=== PATIENT | male | born 1935 | race Caucasian/White ===

== ENCOUNTER → 2016-11-19 | Outpatient (CLI) | payer MEDICARE, BC ==
[~2016-11-19] MED LIST: NORCO 325 MG-51 TAB PO
== END ==
LOC: COL.LAB 12:25
DX: Z12.11 Encounter for screening for malignant neoplasm of colon (principal)

== ENCOUNTER 2023-09-11 20:42 | Inpatient (IN) | payer MEDICARE, BC ==
[~2023-09-11] VITALS: Ht 177.8 cm; Wt 79.6 kg
[~2023-09-11 20:42] MED LIST changes: +CELEBREX 200MG200 MG PO; +INVANZ INJ1 G/VIAL IV; +MINOCYCLIN100 MG/CAP PO
[2023-09-11] MEDS ORDERED: NS 1,000 ML IV ONE (21:15)
[2023-09-11 21:19] LABS: BASO % 0.3 % (0.0-2.0); EOS % 0.3 % (0.0-4.0); GRAN % 87.9 % (42.2-75.2); HEMOGLOBIN 11.1 g/dl (13.5-18.0); LYMPH # 0.6 K/mm3 (1.2-3.4); MEAN CELL VOLUME 91 fl (80.0-100.0); MEAN CORPUSCULAR HEMOGLOBIN 30 pg (27-31); MEAN CORPUSCULAR HGB CONC 33 g/dl (33.0-37.0); MEAN PLATELET VOLUME 8.9 fl (7.4-10.4); MONO # 0.7 K/mm3 (0.1-0.6); MONO % 5.8 % (1.7-9.3); PLATELET COUNT 282 K/mm3 (130-400); RED BLOOD COUNT 3.73 M/mm3 (4.20-5.60); REDCELL DISTRIBUTION WIDTH-CV 13.3 % (11.5-14.5)
[2023-09-11 21:20] LABS: HEMATOCRIT 33.8 % (42.0-52.0)
[2023-09-11 21:22] LABS: ERYTHROCYTE SEDIMENTATION RATE 29 mm/hr (0-30)
[2023-09-11 21:36] LABS: ALBUMIN 2.5 g/dL (3.4-4.8); BILIRUBIN,TOTAL 0.5 mg/dL (0.2-1.2); C-REACTIVE PROTEIN 20.65 mg/dL (0.00-0.50); CALCIUM 8.6 mg/dL (8.4-10.2); CREATININE, serum 1.41 mg/dL (0.72-1.25); POTASSIUM 4.6 mEq/L (3.5-4.5); TOTAL PROTEIN 6.2 g/dl (6.2-8.1)
[2023-09-11] MEDS ORDERED: Morphine 4 MG/ML VIAL IV ONE (22:15)
[2023-09-11] MEDS ORDERED: NS 50 ML IV SCH (23:16)
[2023-09-11] MEDS ORDERED: Iohexol 300 - 100 ML VIAL IV ONE (23:16)
[2023-09-11 23:39] LABS: URINE APPEARANCE CLEAR (CLEAR/HAZY); URINE BLOOD TRACE (NEGATIVE); URINE COLOR YELLOW (YELLOW); URINE GLUCOSE NEGATIVE (NEGATIVE); URINE KETONE NEGATIVE (NEGATIVE); URINE NITRATE NEGATIVE (NEGATIVE); URINE PROTEIN(semi-quant) TRACE (NEGATIVE)
--- NOTE | 2023-09-11 23:45 | NUR ---
REPORT RECIEVED FROM BRY ALMANZAR.
[2023-09-12] VITALS (13 sets, daily range): BP systolic 86–128; BP diastolic 35–70; PULSE 68–94; TEMP 97.6–98.7
--- NOTE | 2023-09-12 00:05 | NUR ---
PATIENT ADMITTED TO ROOM 342 BROUGHT UP BY CONTROL OPERATOR VS ARE 109/52, 94 PULSE, 98.7 TEMP AND 02 SAT 100% ON RA. PATIENT AXO X4.
[2023-09-12 00:13] LABS: COLLECTION METHOD CLEAN CATCH
--- NOTE | 2023-09-12 01:02 | NUR ---
ASSESSMENT COMPLETE. RT KNEE SURGICAL SITE DRAINING PURULENT MALODOROUS FLUID. SUTURES SEEM TO BE INTACT. AREA IS EDENEMOUS- 3+ PITTING. DISTAL PULSES LOCATED WITH DOPPLER. VS ARE WNL AND PATIENT IS CURRENTLY AXO X 4. STATES NO NEEDS AT THIS TIME.
[2023-09-12] MEDS ORDERED: Heparin 5,000 UNITS/ML 1 ML VIAL IV PRN (01:45)
[2023-09-12] MEDS ORDERED: Heparin/D5W 250 ML IV SCH (01:45)
[2023-09-12] MEDS ORDERED: Heparin 5,000 UNITS/ML 1 ML VIAL IV ONE (01:45)
[2023-09-12 02:10] LABS: PARTIAL THROMBOPLASTIN TIME 27.7 SECONDS (26.0-37.0)
[2023-09-12] MEDS ORDERED: NS 1,000 ML IV SCH (02:30)
--- NOTE | 2023-09-12 03:08 | NUR ---
Vancomycin Initial Dosing Pharmacy Note Ordering provider: Ericka Talley R., MD Indication/duration: Joint infection, possible abcess x 7 days. Relevant comorbidities: TKA on 08/13/23 LABS: WBC = 12.5, SCr = 1.41 Recommendation: Will draw trough and follow levels. Loading dose: 1.5 grams Maintenance dose: 1.25 grams every 24 hours Trough goal: 15-20 ug/mL
--- NOTE | 2023-09-12 03:55 | NUR ---
CALL PLACED TO HOSPITALIST RICK. PATIENT HYPOTENSIVE 86/42. PLACED PATIENT IN TRENDELENBERG AND TORB TO BOLUS LT NS AND THEN ADJUST DRIP RATE TO 100MLS/HR GIVEN.
--- NOTE | 2023-09-12 04:55 | NUR ---
CALL PLACED TO HSPITALISTRICK. NS BOLUS COMPLETE PATIENT BP NOW 92/53 WITH MAP OF 66. TORB TO CONTINUE IVF AT 150ML/HR GIVEN.
[2023-09-12 08:42] LABS: BASO % 0.3 % (0.0-2.0); EOS # 0.1 K/mm3 (0.0-0.7); EOS % 0.5 % (0.0-4.0); GRAN # 9.4 K/mm3 (1.4-6.5); GRAN % 86.9 % (42.2-75.2); HEMOGLOBIN 10.4 g/dl (13.5-18.0); LYMPH # 0.7 K/mm3 (1.2-3.4); LYMPH % 6.8 % (20.0-51.0); MEAN CELL VOLUME 89 fl (80.0-100.0); MEAN CORPUSCULAR HEMOGLOBIN 29 pg (27-31); MEAN CORPUSCULAR HGB CONC 32 g/dl (33.0-37.0); MEAN PLATELET VOLUME 8.8 fl (7.4-10.4); MONO # 0.5 K/mm3 (0.1-0.6); MONO % 4.8 % (1.7-9.3); PLATELET COUNT 239 K/mm3 (130-400); RED BLOOD COUNT 3.63 M/mm3 (4.20-5.60); REDCELL DISTRIBUTION WIDTH-CV 13.3 % (11.5-14.5)
[2023-09-12 08:43] LABS: HEMATOCRIT 32.2 % (42.0-52.0)
[2023-09-12 09:02] LABS: CALCIUM 7.8 mg/dL (8.4-10.2); CREATININE, serum 1.03 mg/dL (0.72-1.25); POTASSIUM 3.9 mEq/L (3.5-4.5)
--- NOTE | 2023-09-12 09:30 | NUR ---
SHIFT ASSESSMENT COMPLETE. VSS. PATIENT AWAKE OFF AND ON WATCHING TV. PATIENT NPO STATUS TILL SEEN BY ORTHO. PATIENT REPORTS PAIN IS MIN. AND REQUEST NO PAIN MEDS AT THIS TIME. PATIENT HAS HEPARIN 14.5ML/HR AND NS RUNNING AT 150ML/HR TO LFT FOREARM. TELEMENTRY IN PLACE PATIENT IN NORMAL SINUS HR 90BPM. PATIENT HAS NO REQUEST OR COMPLAINTS AT THIS TIME. BED ALARM ON AND CALL LIGHT IN REACH.
--- NOTE | 2023-09-12 09:51 | NUR ---
Data: Patient declined Spiritual Care visit offered during Package Winder rounds, but did accept prayer. Assessment: Patient stated he is comfortable in his prakash and is not feeling any need for spiritual care. Plan of Care: Package Winder prayed for Patient's healing. Chaplains will remain available as needed/requested while Patient is admitted to this hospital.
[2023-09-12 11:14] LABS: SYNOVIAL FL. MONONUCLEAR 5.1 % (0-75)
[2023-09-12 11:28] LABS: SYNOVIAL FLUID RBC 88000 /mm3 (0-0); SYNOVIAL FLUID WBC 86152 /mm3 (200-600)
[2023-09-12 11:29] LABS: SYNOVIAL FLUID APPEARANCE TURBID; SYNOVIAL FLUID COLOR RED
--- NOTE | 2023-09-12 11:53 | NUR ---
SW met with patient to complete initial assessment for discharge planning. Patient verified that he lives alone in [place], is normally active and idependent. Patient lists his son John as his contact and DPOA ([phone]) and his daughter Soledad as alternate DPOA. Pt states he sees MARISELA Cerna at [facility] as his PCP and uses [id number]. He states he only has a walker for DME. Discussed discharge options pending therapy evaluations to include SNF and [facility]. Patient voiced interest in [facility]. Referral sent to Director Catherine. Discharge plan: Home vs SNF vs [facility]
[2023-09-12] MEDS ORDERED: Vancomycin 1.25 GM,Special Dose/Pharmacy Prepared 1.25 GM in NS 250 ML IV SCH (14:00)
--- NOTE | 2023-09-12 21:00 | NUR ---
UPON SHIFT ASSESSMENT, PATIENT WAS AWAKE IN BED AND AXO X4. RT KNEE SURGICAL SITE OPEN TO AIR WITH SLIGHT ERYTHEMA, EDEMA AND MINIMAL PRULUENT DRAINAGE NOTED. HEPARIN GTTS RUNNING AT 17ML/HR. PATIENT VS ARE CURRENTLY WNL. TELE EXHIBITS AFIB AT 89 BPM. PATIENT DDENIES CHEST PAIN AND SOA. BED ALARM ON, CALL LIGHT WITHIN REACH
[2023-09-12] MEDS ORDERED: LR 1,000 ML IV SCH (21:30)
--- NOTE | 2023-09-12 22:00 | NUR ---
HEP Xa RESULTED 0.21. HEPARIN GTT TITRATED TO 18.5 ML/HR PER ALGORITHM-CO SIGNED BY CHARGE NURSE WILIAN. VS REMAIN WNL.
[2023-09-13] VITALS (20 sets, daily range): BP systolic 97–146; BP diastolic 37–79; PULSE 48–116; TEMP 97.7–98.3
--- NOTE | 2023-09-13 | NUR ---
PATIENT HAD SMALL AMOUNT OF LOOSE STOOL. SACRUM EXHIBITED ERYTHEMA. MEPIPLEX PLACED.
--- NOTE | 2023-09-13 02:53 | NUR ---
HEPARIN GTTS ON STANDBY/HOLD PER ORDERS.
--- NOTE | 2023-09-13 03:41 | NUR ---
ALERTED BY PCTRICK. PATIENT BP 97/62. MAP IS WNL AT 76
--- NOTE | 2023-09-13 06:55 | NUR ---
awake resting in bed, bedside shift report received from Louisa, RN
[2023-09-13 07:01] LABS: BASO # 0.1 K/mm3 (0.0-0.2); BASO % 0.6 % (0.0-2.0); EOS # 0.1 K/mm3 (0.0-0.7); EOS % 1.5 % (0.0-4.0); GRAN % 81.8 % (42.2-75.2); LYMPH # 0.9 K/mm3 (1.2-3.4); LYMPH % 10.4 % (20.0-51.0); MEAN CELL VOLUME 91 fl (80.0-100.0); MEAN CORPUSCULAR HGB CONC 32 g/dl (33.0-37.0); MEAN PLATELET VOLUME 9.2 fl (7.4-10.4); MONO # 0.4 K/mm3 (0.1-0.6); MONO % 4.6 % (1.7-9.3); PLATELET COUNT 254 K/mm3 (130-400); RED BLOOD COUNT 3.29 M/mm3 (4.20-5.60); REDCELL DISTRIBUTION WIDTH-CV 13.5 % (11.5-14.5)
[2023-09-13 07:06] LABS: HEMATOCRIT 29.8 % (42.0-52.0); HEMOGLOBIN 9.5 g/dl (13.5-18.0); MEAN CORPUSCULAR HEMOGLOBIN 29 pg (27-31)
[2023-09-13 07:11] LABS: C-REACTIVE PROTEIN 14.4 mg/dL (0.00-0.50); CALCIUM 7.4 mg/dL (8.4-10.2); CREATININE, serum 0.94 mg/dL (0.72-1.25); POTASSIUM 3.5 mEq/L (3.5-4.5)
--- NOTE | 2023-09-13 08:00 | NUR ---
awake and looking at TV, full assessment completed, see interventions for further info, dorsalis pedis pulse only heard for short time with doppler and posterior tibial good with doppler, prepped for surgery
--- NOTE | 2023-09-13 08:15 | NUR ---
MARISELA Chandler in to see patient, ABEL Haley in to take patient to surgery and consents signed, to surgery per bed
[2023-09-13] MEDS ORDERED: Midazolam 2 MG/2 ML VIAL ONE (08:30)
[2023-09-13] MEDS ORDERED: fentaNYL 50 MCG/ML 2 ML VIAL ONE (08:30)
[2023-09-13] MEDS ORDERED: Lidocaine PF 2% (20 MG/ML) 5 ML VIAL ONE (08:30)
[2023-09-13] MEDS ORDERED: NS 10 ML IV ONE (08:31)
[2023-09-13] MEDS ORDERED: Tranexamic Acid 1,000 MG/10 ML VIAL ONE (08:35)
[2023-09-13] MEDS ORDERED: Ondansetron 4 MG/2 ML VIAL IV PRN (09:45)
[2023-09-13] MEDS ORDERED: HYDROmorphone 1 MG/1 ML SYRINGE [PACU/SDC ONLY] IV PRN (09:45)
[2023-09-13] MEDS ORDERED: Morphine 2 MG/1 ML VIAL [PACU/SDC ONLY] IV PRN (09:45)
[2023-09-13] MEDS ORDERED: Meperidine 50 MG/ML 1 ML VIAL IV PRN (09:45)
[2023-09-13] MEDS ORDERED: LR 1,000 ML IV ONE (09:59)
[2023-09-13] MEDS ORDERED: Vancomycin 1 GM VIAL IL ONE (10:03)
[2023-09-13] MEDS ORDERED: TOBRAMYCIN 1.2 GM IL ONE (10:04)
--- NOTE | 2023-09-13 10:39 | NUR ---
remains in surgery
[2023-09-13] MEDS ORDERED: Promethazine 25 MG TAB PO PRN (11:00)
[2023-09-13] MEDS ORDERED: Promethazine 50 MG/ML 1 ML VIAL IM PRN (11:00)
[2023-09-13] MEDS ORDERED: Naloxone 0.4 MG/ML VIAL IV PRN (11:00)
[2023-09-13] MEDS ORDERED: Magnes Hydrox (MOM) 80 MG/ML 30 ML CUP PO PRN (11:00)
--- NOTE | 2023-09-13 11:35 | NUR ---
returned to room per bed from PACU, awake and alert but sleepy, IV infusing per gravity at this time, O2 on at 1L/NC and O2 sat 100%, oliver cath patent draining clear yellow urine, has bulky dressing to right leg with IROM brace locked and in place, right foot and toes warm to touch and good cap refill, attempt to listen to dorsalis pedis pulse with doppler and only hear for short second, SCDS on left leg, asking for something to drink and eat, will provide water and jello and if tolerates well advance to general diet, has sensation at top of thigh and unable to move lower extremities, denies needs
--- NOTE | 2023-09-13 12:00 | NUR ---
provided water and jello, sensation remains the same
--- NOTE | 2023-09-13 12:45 | NUR ---
repositioned up in bed for lunch
--- NOTE | 2023-09-13 13:15 | NUR ---
had general diet and tolerated well, resting sharri
--- NOTE | 2023-09-13 14:10 | NUR ---
called asking for something for pain, c/o pain 10/16, medicated with hydrocodone 5mg 1 tab, repositioned to left side and right leg up on pillows, to help with pain
--- NOTE | 2023-09-13 14:30 | NUR ---
Dr Talley notified and requesting something more for pain,
--- NOTE | 2023-09-13 14:37 | NUR ---
continues to c/o pain and medicated with morphine 4mg slow IV
--- NOTE | 2023-09-13 14:42 | NUR ---
medicated with morphine 4mg slow IV
[2023-09-13] MEDS ORDERED: Morphine 4 MG/ML VIAL IV PRN (14:45)
--- NOTE | 2023-09-13 15:06 | NUR ---
in bed and states he is still having pain to right knee
[2023-09-13] MEDS ORDERED: fentaNYL 50 MCG/ML 2 ML VIAL IV PRN (15:30)
--- NOTE | 2023-09-13 15:30 | NUR ---
IROM brace loosened at this time to see if this will help with pain
--- NOTE | 2023-09-13 16:18 | NUR ---
continues to c/o pain 11/16 and medicated with fentanyl 50mcg slow IV
--- NOTE | 2023-09-13 16:55 | NUR ---
sitting up in bed eating supper, states pain is now tolerable
--- NOTE | 2023-09-13 18:50 | NUR ---
bedside shift report given to ABEL Dasilva
[2023-09-13] MEDS ORDERED: Sennosides/Docusate 8.6-50 MG TAB PO SCH (21:00)
[2023-09-14] VITALS (12 sets, daily range): BP systolic 97–143; BP diastolic 47–67; PULSE 62–105; TEMP 97.7–99.1
--- NOTE | 2023-09-14 02:00 | NUR ---
Shift assessment completed- see documentation. Pt is alert and oriented. He reports 5/10 pain at this time. PRN Edison administered with his PM medications. He remains on 1.5 L O2 via nasal cannula. His right leg is elevated and in a brace. The surgical site is CDI and covered in gauze and YVONNE wrap. The right foot has a pulse only detected by the doppler. He has been repositioned in the bed until comfortable. He denies other needs at this time. Call light left within reach and fall precautions in place.
[2023-09-14 05:56] LABS: BASO % 0.3 % (0.0-2.0); EOS # 0.2 K/mm3 (0.0-0.7); EOS % 1.3 % (0.0-4.0); GRAN % 84.9 % (42.2-75.2); LYMPH # 0.8 K/mm3 (1.2-3.4); LYMPH % 7.1 % (20.0-51.0); MEAN CELL VOLUME 88 fl (80.0-100.0); MEAN CORPUSCULAR HGB CONC 33 g/dl (33.0-37.0); MEAN PLATELET VOLUME 8.8 fl (7.4-10.4); MONO # 0.7 K/mm3 (0.1-0.6); MONO % 5.5 % (1.7-9.3); PLATELET COUNT 267 K/mm3 (130-400); RED BLOOD COUNT 3.33 M/mm3 (4.20-5.60); REDCELL DISTRIBUTION WIDTH-CV 13.5 % (11.5-14.5)
[2023-09-14 05:57] LABS: HEMATOCRIT 29.4 % (42.0-52.0); HEMOGLOBIN 9.7 g/dl (13.5-18.0); MEAN CORPUSCULAR HEMOGLOBIN 29 pg (27-31)
[2023-09-14 06:08] LABS: C-REACTIVE PROTEIN 14.04 mg/dL (0.00-0.50); CALCIUM 7.5 mg/dL (8.4-10.2); CREATININE, serum 0.79 mg/dL (0.72-1.25); POTASSIUM 3.7 mEq/L (3.5-4.5)
--- NOTE | 2023-09-14 07:30 | NUR ---
BEDSIDE SHIFT REPORT GIVEN AT THIS TIME. PT VOICES NO CONCERNS OR QUESTIONS. CALL LIGHT WITHIN REACH.
--- NOTE | 2023-09-14 08:02 | NUR ---
MORNING MEDICATIONS ADMINISTERED AT THIS TIME. SHIFT ASSESSMENT COMPLETED. A&O X4. VSS. BADILLO CATHETER CLEAN, DRY, INTACT. RT LEG IN BRACE AND ELEVATED WITH PILLOWS. PT REPORTS 1/10 PAIN WITH NO CONCERNS OR QUESTIONS AT THIS TIME. CALL LIGHT WITHIN REACH.
--- NOTE | 2023-09-14 10:06 | NUR ---
radiology technician at bedside, unable to complete test without bulky dressing being removed. Large bulky dressing removed and new aquacell dressing placed. Ultrasound to complete test.
--- NOTE | 2023-09-14 14:00 | NUR ---
CONTACTED [facility] FOR ORDERS TO DC MIDLINE AND PLACE A PICC LINE. NO ANSWER, VOICEMAIL LEFT. PT HAS A WORKING INT. SECOND INT DC'D D/T LEAKING.
--- NOTE | 2023-09-14 19:04 | NUR ---
THIS NURSE DC'D PT'S BADILLO. DRESSING TO RIGHT KNEE IS CLEAN, DRY AND INTACT. IROM BRACE TO RLE. PT MEDICATED WITH NORCO FOR PAIN. PT REPORTS MEDICATION EFFECTIVE. BEDSIDE REPORT GIVEN TO ABEL ROSSI.
--- NOTE | 2023-09-14 19:15 | NUR ---
report received from luis miguel snider. pt resting in bed finishing dinner. pt denies pain. right knee brace in place. fall precautions in place. call light in reach. all needs met at this time.
--- NOTE | 2023-09-14 20:16 | NUR ---
Vancomycin Follow-up Pharmacy Note Current regimen: Vancomycin 1.25 gm IV q24h Vancomycin trough: 7 Adjustments: Will change Vancomycin to 1 gm IV q12h. Pharmacy will continue to closely montior.
[2023-09-14] MEDS ORDERED: Meropenem 1 G in Water For Injection,Sterile 20 ML IV SCH (20:30)
--- NOTE | 2023-09-14 21:31 | NUR ---
shift assessment complete, see documentation. pt tolerated hs meds well. abx running to left ac without issue. pt rating right knee pain 5/10, prn norco administered per orders. fall precautions in place. call light in reach. all needs met at this time.
[2023-09-15] VITALS (12 sets, daily range): BP systolic 105–155; BP diastolic 55–80; PULSE 60–85; TEMP 97.7–98.5
[2023-09-15 06:07] LABS: BASO # 0.1 K/mm3 (0.0-0.2); BASO % 0.5 % (0.0-2.0); EOS # 0.2 K/mm3 (0.0-0.7); EOS % 2.1 % (0.0-4.0); GRAN # 8.5 K/mm3 (1.4-6.5); GRAN % 80.6 % (42.2-75.2); HEMOGLOBIN 10.1 g/dl (13.5-18.0); LYMPH % 9.5 % (20.0-51.0); MEAN CELL VOLUME 91 fl (80.0-100.0); MEAN CORPUSCULAR HEMOGLOBIN 30 pg (27-31); MEAN CORPUSCULAR HGB CONC 33 g/dl (33.0-37.0); MEAN PLATELET VOLUME 9.2 fl (7.4-10.4); MONO # 0.7 K/mm3 (0.1-0.6); MONO % 6.4 % (1.7-9.3); PLATELET COUNT 317 K/mm3 (130-400); RED BLOOD COUNT 3.41 M/mm3 (4.20-5.60); REDCELL DISTRIBUTION WIDTH-CV 13.5 % (11.5-14.5)
[2023-09-15 06:22] LABS: C-REACTIVE PROTEIN 16.52 mg/dL (0.00-0.50); CALCIUM 8.3 mg/dL (8.4-10.2); CREATININE, serum 0.79 mg/dL (0.72-1.25); POTASSIUM 3.9 mEq/L (3.5-4.5)
--- NOTE | 2023-09-15 08:00 | NUR ---
PATIENT IS A&O. VSS. C/O PAIN IN RLE AND REQUESTING SOMETHING FOR PAIN, GIVEN WITH AM MEDS. RLE AQUACEL INPLACE. IROM TO RLE. PATIENT FOUND SITTING AT BEDSIDE DURING SHIFT REPORT AND HAD HIS IROM BRACE UNSTRAPPED, ORTHO ROUNDING, PATIENT IS TO HAVE IROM BRACE ON AT ALL TIMES. NOTED TWO SPOTS ON LATERAL SIDES OF KNEE RUBBING FROM IROM, PLACED GAUZE FOR COMFORT AND RESTRAPPED IROM. NOTED +2 EDEMA TO RLE. UNABLE TO FEEL PEDAL PULSE TO RLE, FOUND PULSE WITH DOPPLER. SCD'S CURRENTLY OFF. PT/OT CONSULTED. EAT/DRINK/VOIDING SUFFICENT AMOUNTS. LEFT FORARM IV TO INT. MIDLINE TO INT. PATIENT NEEDS PICC LINE PLACED, AIVS TO PLACE 09/15. HEAD TO TOE ASSESSMENT COMPLETE. NO OTHER NEEDS AT THIS TIME. CALL LIGHT IN REACH. BREAKFAST TRAY AT BEDSIDE.
--- NOTE | 2023-09-15 08:28 | NUR ---
TELE CALLED AND REPORTED PATIENT APPEARS TO BE GOING IN & OUT OF A-FIB. CALLED FOR STAT EKG, SEE ORDERS. HOSPITALIST NOTIFIED. SEE ORDERS FOR CARDIOLOGY CONSULT.
--- NOTE | 2023-09-15 09:50 | NUR ---
DR.KATZ ROUSE
--- NOTE | 2023-09-15 10:04 | NUR ---
On 09/14/23, social work msw spoke with [facility] regarding referral. They were reviewing PT evaluation that was completed today and would meet tomorrow with the team to discuss the referral. SW will follow up.
--- NOTE | 2023-09-15 15:17 | NUR ---
humidifier maintenance worker attended interdisciplinary clinical rounding with Dr. Coello. Patient will be medically ready for discharge tomorrow and will need IV antibiotics. HANNA met with patient to discuss discharge plan. Patient's first choice is still [facility] then second would be [facility]. SW provided Medicare.gov list of options for SNF. Patient reports his first choice of SNF would be [facility] as he has been there before. SW met with [facility] whom reports they believe patient would need about a week of therapy then he would go to [facility] for IV antibiotics so they did not believe he would be appropriate for [facility] as he would be there for a short period of time. [facility] declined patient. HANNA and HANNA student met with patient and explained [facility] declined patient. Patient is agreeable to go to SNF and first preference is [facility]. HANNA explained patient would need to remain there for IV antibiotics after rehab. Patient reports he has family support whom could take him to the express unit to complete IV antibiotics after rehab. HANNA secure emailed [facility] HANNA was notified [facility] could accept patient. HANNA was notified [facility] is able to accept patient. HANNA notified [facility] of patient's preference to another facility. HANNA notified patient's nurse of discharge to [facility] tomorrow. Discharge plan: [facility] - SNF
--- NOTE | 2023-09-15 15:55 | NUR ---
CALLED HOSPITALIST FOR CLARIFICATION ON ORDERS FROM 09/13 TO PULL MIDLINE. PATIENT WAITING FOR PICC PLACEMENT AIVS. MARISELA SELBY & RECOMMEND LEAVING MIDLINE TILL PICC PLACED 09/15.
--- NOTE | 2023-09-15 20:15 | NUR ---
SHIFT ASSESSMENT COMPLETE. VSS. PATIENT RESTING IN BED WATCHING TV. ALL EVENING MEDS GIVEN PER ORDERS. PATIENT REPORTS MINIMAL PAIN 2-3/10 NO PAIN MEDS REQUESTED AT THIS TIME. BED ALARM ON AND CALL LIGHT IN REACH
[2023-09-16] VITALS (7 sets, daily range): BP systolic 121–155; BP diastolic 60–69; PULSE 62–93; TEMP 97.9–99.4
--- NOTE | 2023-09-16 02:33 | NUR ---
INT REMOVED FROM LFT FOREARM DUE TO REDNESS AND UNABLE FLUSH. NEW IV STARTED BY ABEL FLORLINE STAKER NURSE IN LFT FOREARM. PATIENT TOLERATED WELL.
[2023-09-16 06:28] LABS: BASO # 0.1 K/mm3 (0.0-0.2); BASO % 0.6 % (0.0-2.0); EOS # 0.3 K/mm3 (0.0-0.7); EOS % 3.1 % (0.0-4.0); GRAN % 77.1 % (42.2-75.2); HEMOGLOBIN 10.8 g/dl (13.5-18.0); LYMPH % 11.2 % (20.0-51.0); MEAN CELL VOLUME 91 fl (80.0-100.0); MEAN CORPUSCULAR HEMOGLOBIN 30 pg (27-31); MEAN CORPUSCULAR HGB CONC 33 g/dl (33.0-37.0); MEAN PLATELET VOLUME 9.1 fl (7.4-10.4); MONO # 0.6 K/mm3 (0.1-0.6); MONO % 6.9 % (1.7-9.3); PLATELET COUNT 334 K/mm3 (130-400); RED BLOOD COUNT 3.66 M/mm3 (4.20-5.60); REDCELL DISTRIBUTION WIDTH-CV 13.4 % (11.5-14.5)
[2023-09-16 06:39] LABS: HEMATOCRIT 33.2 % (42.0-52.0)
[2023-09-16 06:48] LABS: ALBUMIN 1.8 g/dL (3.4-4.8); BILIRUBIN,TOTAL 0.3 mg/dL (0.2-1.2); CALCIUM 8.5 mg/dL (8.4-10.2); CREATININE, serum 0.73 mg/dL (0.72-1.25); POTASSIUM 4.3 mEq/L (3.5-4.5)
--- NOTE | 2023-09-16 08:30 | NUR ---
HOSPITALIST TEAM ROUNDING. YEE HELD FOR PICC LINE PLACEMENT TODAY AND MIDLINE REMOVAL FOR DISCHARGE PER .
[2023-09-16] MEDS ORDERED: MERREM IV1 GM IV (08:34)
[2023-09-16] MEDS ORDERED: TYLENOL 325MG325 MG PO (08:36)
[2023-09-16] MEDS ORDERED: SENEXON-S 50-81 EACH PO (08:36)
[2023-09-16] MEDS ORDERED: NORCO 325 MG-51 TAB PO (08:39)
--- NOTE | 2023-09-16 10:45 | NUR ---
AIVS AT BEDSIDE TO PLACE PICC LINE
--- NOTE | 2023-09-16 12:00 | NUR ---
PATIENT DISCHARGING, REMOVED RUE MIDLINE PER ORDERS. PATIENT PLACED IN FLAT POSITION, HEAD TURNED AWAY AND INSTRUCTED TO BLOW OUT DURING REMOVAL. CATH TIP INTACT AND PATIENT TOLERATED WELL. PATIENT ON FLAT TIME FOR 30 MINUTES. RN ALSO REMOVED LEFT FORARM IV AND COVERED SITE WITH GAUZE & COBAN. TELE REMOVED. PATIENT RESTING FLAT IN BED WITH CALL LIGHT IN REACH.
--- NOTE | 2023-09-16 13:30 | NUR ---
PATIENT'S PERSONAL BELONGINGS GATHERED AND SENT WITH PATIENT. DISCHARGE PAPERWORK SENT WITH FACILITY MANAGER BATTERY. NURSE TO NURSE REPORT GIVEN TO SWATHI EARL.
--- NOTE | 2023-09-16 17:03 | NUR ---
drive worker attended interdisciplinary clinical rounding with Dr. Coello whom reports patient is medically ready for discharge. Patient will transfer to [facility]. HANNA faxed and secure emailed clinical updates and discharge orders to [facility]. HANNA met with patient and reviewed the important message from Medicare. Patient reported he understood. Patient signed form. HANNA made a copy, placed original in chart and provided copy to patient. HANNA confirmed patient's next IV antibiotic dose, SW notified [facility]. HANNA scheduled transportation for between 1230-130. HANNA notified patient's nurse, unit technician and physician. HANNA was notified patient's first infectious disease appointment will need to be in [place] next Thursday due to them not being able to see him in [place] until October 14. [facility] confirmed they could make that appointment work. No further questions or concerns at this time. Discharge plan: [facility]
== END 2023-09-16 13:30 | DRG 468 ==
LOC: COL.ER 20:42 → SURG 22:10
PROVIDERS: Emergency Medicine; Nurse Practitioner Family; Physician Assistant; ADMIT Internal Medicine
PROC: 0SPC0JZ Removal of Synthetic Substitute from Right Knee Joint, Open Approach (ICD-10-PCS; principal; 2023-09-11)
PROC: 0SRC0J9 Replacement of Right Knee Joint with Synthetic Substitute, Cemented, Open Approach (ICD-10-PCS; 2023-09-11)
PROC: 02HV33Z Insertion of Infusion Device into Superior Vena Cava, Percutaneous Approach (ICD-10-PCS; 2023-09-11)
DX: T84.53XA Infection and inflammatory reaction due to internal right knee prosthesis, initial encounter (principal)
CPT/HCPCS: A4314; A9284; C1713; C1751; C1776; J0665; J0690; J0737; J1644; J1650; J2185; J2250; J2270; J2543; J2704; J3010; J3260; J3370; J7030; J7050; J7120; L1832; Q3014; Q9967